=== PATIENT | female | born 1960 | race Caucasian/White ===

== ENCOUNTER 2024-01-01 14:53 | Outpatient (OUT) | payer MEDICARE, SELFPAY ==
--- NOTE | 2024-01-01 15:08 | XR_ITS ---
The [address] [address] Patient Name: CHAS SEN MRN: [id number] date: 1960 Sex: F Assigned Patient Location: [facility] Current Patient Location: Accession/Order Number: [id number] Exam Date: 01/01/2024 15:20 Report Date: 01/02/2024 07:46 At the request of: FRANCISCO PARKS Procedure: XR lumbar spine 2-3V EXAMINATION: XR lumbar spine 2-3V HISTORY: subacute right lumbar radiculopathy M54.16 ; lower right back pain radiating into anterior right leg COMPARISON: No relevant comparison available. FINDINGS: BONES: Moderate degenerative facet arthropathy L5-S1 resulting in bone encroachment on the neural foramen. DISC SPACES: Moderate narrowing L5-S1. PARASPINOUS: Negative. No paraspinous abnormality is seen. OTHER: Endovascular stents within the common iliac arteries. XR/XR lumbar spine 2-3V IMPRESSION: 1. L5-S1 moderate degenerative changes causing foraminal narrowing. Consider MRI for further evaluation. 2. No appreciable acute abnormality. Electronically authenticated by: AWILDA BILLY Date: 01/02/2024 07:46
== END 2024-01-01 14:54 | disposition home or self-care (01) ==
LOC: RAD 14:57
PROVIDERS: PCP Internal Medicine; Visit Provider Internal Medicine
DX: M54.16 Radiculopathy, lumbar region (principal); M51.36 Other intervertebral disc degeneration, lumbar region
CPT/HCPCS: 72100

== ENCOUNTER 2024-10-13 11:56 | Outpatient (OUT) | payer MEDICARE, SELFPAY ==
--- NOTE | 2024-10-13 12:22 | CT_ITS ---
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 TECHNIQUE: Contrast enhanced head and neck CT arteriogram was performed. Scanning performed during the arterial phase from the thoracic inlet to the [place] of [place]. 3D reconstructions were rendered on a separate 3D workstation to evaluate vascular anatomy. Dose reduction techniques were achieved by using automated exposure control and/or adjustment of mA and/or kV according to patient size and/or use of iterative reconstruction technique. Carotid stenosis was measured utilizing NASCET criteria. FINDINGS: VASCULATURE FINDINGS: Arch and Subclavian Arteries: Standard three vessel arch. Subclavian arteries are normal bilaterally. 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 Left common carotid artery is patent. ICAs: Patent bilaterally to the carotid terminus. Trace calcifications of the intracranial ICA segments without high-grade narrowing. MCAs: Normal bilaterally. ACAs: Normal bilaterally. P-Comms: Visualized bilaterally. Vertebral Arteries: Patent to the confluence with the basilar artery. Moderate narrowing of both vertebral artery origins. Basilar Artery: Normal. 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 Aneurysm: None. NECK FINDINGS: No acute soft tissue abnormalities in the neck. Airway is patent. Normal thyroid. Visualized lungs are clear. Multilevel cervicothoracic spondylotic changes. CT/CT angio neck IMPRESSION: 1. 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 This could be chronic. 2. No other large vessel arterial occlusion or high-grade narrowing in the head or neck. 3. Moderate narrowing of both vertebral artery origins. Report was submitted to the clinical operation support team for expedited review by the provider. Electronically authenticated by: AUBREY OLIVIER Date: 10/13/2024 15:14
--- NOTE | 2024-10-13 12:22 | CT_ITS ---
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 TECHNIQUE: Contrast enhanced head and neck CT arteriogram was performed. Scanning performed during the arterial phase from the thoracic inlet to the [place] of [place]. 3D reconstructions were rendered on a separate 3D workstation to evaluate vascular anatomy. Dose reduction techniques were achieved by using automated exposure control and/or adjustment of mA and/or kV according to patient size and/or use of iterative reconstruction technique. Carotid stenosis was measured utilizing NASCET criteria. FINDINGS: VASCULATURE FINDINGS: Arch and Subclavian Arteries: Standard three vessel arch. Subclavian arteries are normal bilaterally. 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 Left common carotid artery is patent. ICAs: Patent bilaterally to the carotid terminus. Trace calcifications of the intracranial ICA segments without high-grade narrowing. MCAs: Normal bilaterally. ACAs: Normal bilaterally. P-Comms: Visualized bilaterally. Vertebral Arteries: Patent to the confluence with the basilar artery. Moderate narrowing of both vertebral artery origins. Basilar Artery: Normal. 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 Aneurysm: None. NECK FINDINGS: No acute soft tissue abnormalities in the neck. Airway is patent. Normal thyroid. Visualized lungs are clear. Multilevel cervicothoracic spondylotic changes. CT/CT angio head IMPRESSION: 1. 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 This could be chronic. 2. No other large vessel arterial occlusion or high-grade narrowing in the head or neck. 3. Moderate narrowing of both vertebral artery origins. Report was submitted to the clinical operation support team for expedited review by the provider. Electronically authenticated by: AUBREY OLIVIER Date: 10/13/2024 15:14
[2024-10-13 12:30] LABS: Estimated GFR (African America >60 (>=60 mL/min/1.73m^2); Estimated GFR (Non-African Ame >60 (>=60 mL/min/1.73m^2)
--- NOTE | 2024-10-13 13:06 | CA_ITS ---
Patient Name: CHAS SEN MR#: [id number] : 1960 Exam Date: 10/13/2024 Ordering Doctor: DR DUSTY BELLA ECHOCARDIOGRAM REPORT PROCEDURE: CA ECHO DOPPLER COMPLETE INDICATIONS: Stroke, eval for PFO COMPARISON: None. DESCRIPTION: COMPLETE ECHOCARDIOGRAM Real-time transthoracic echocardiography with 2D, M-mode, spectral and color flow Doppler performed. QUALITY: Technical quality was adequate. LEFT VENTRICLE: Normal chamber size. Normal left ventricular wall thickness. LV EF: Global left ventricular systolic function is hyperdynamic; visually estimated ejection fraction is 65 to 70%. No wall motion abnormalities. DIASTOLIC: Unable to assess diastolic function. ATRIAL SEPTUM: Intact atrial septum. Suboptimal agitated saline contrast study; this does not reveal an intra-cardiac shunt. LEFT ATRIUM: Normal chamber size. RIGHT ATRIUM: Normal chamber size. RIGHT VENTRICLE: Normal chamber size. Normal right ventricular systolic function. TRICUSPID VALVE: Normal mobility and thickness. No stenosis with no regurgitation. Unable to assess right-sided pressures due to lack of measurable tricuspid regurgitation MITRAL VALVE: Normal mobility and thickness. No evidence of mitral valve stenosis. There is no mitral annular calcification. No mitral regurgitation. AORTIC VALVE: Normal trileaflet appearance. No visible sclerosis. Normal leaflet mobility. No evidence of aortic valve stenosis. No aortic regurgitation. AORTIC ROOT: Normal diameter and appearance. PULMONIC VALVE: Not well visualized. No stenosis. No regurgitation. PERICARDIUM: Anterior free space; trivial effusion versus fat pad IVC: Collapses with inspirations. CONCLUSION: 1. Global left ventricular systolic function is hyperdynamic; visually estimated ejection fraction is 65 to 70% 2. Normal right ventricular size and systolic function 3. No significant valvular abnormalities 4. Anterior free space; trivial effusion versus fat pad 5. A suboptimal agitated saline contrast study was performed; no evidence of intracardiac shunt, consider further investigations (e.g. transesophageal echocardiogram) as clinically appropriate Adult Echocardiography Procedure Report Left Ventricle LVEDD (3.7 - 5.6 cm): 3.15 cm LVESD (2.2 - 4.0 cm): 2.78 cm LVIVS thickness (0.6 - 1.2 cm): 1.12 cm LVPW thickness (0.5 - 1.0 cm): 0.93 cm E - e': 7.73 LVOT Max Gradient: 4.19 mm[Hg] LVOT Area (cm2): 1.02 m/s Peak Velocity (LVOT): 1.02 m/s Mean Velocity (LVOT): 0.65 m/s LVOT Diameter 2.19 cm Left Atrium LA Volume Index (2D A2C): 14.69 ml/m2 Left Atrium Systolic Dimension: 2.69 cm Mitral Valve MV E to A Ratio: 0.69 Mitral Valve A-Wave Peak Velocity: 0.98 m/s Mitral Valve E-Wave Peak Velocity: 0.68 m/s Right Ventricle Aorta AO Root Diam: 2.77 cm Aortic Valve AoV Area (Peak Juliano): 4.04 cm2, 4.04 cm2 AoV Area (VTI): 3.70 cm2, 3.70 cm2 Peak Velocity(Antegrade Flow): 0.96 m/s Peak Gradient(Antegrade Flow): 3.68 mm[Hg] Mean Velocity(Antegrade Flow): 0.67 m/s Mean Gradient(Antegrade Flow): 2.03 mm[Hg] Velocity Time Integral: 19.86 cm Tricuspid Valve Pulmonic Valve Mean Gradient: 1.86 mm[Hg] Mean Velocity: 0.64 m/s Peak Velocity: 0.92 m/s, 0.94 m/s Peak Gradient: 3.53 mm[Hg], 3.37 mm[Hg] Right Atrium Right Atrium Systolic Pressure: 18.66 ml, 18.66 ml Dictated by: Maria De Jesus Calixto M.D. on 10/18/2024 at 14:07 Approved by: Maria De Jesus Calixto M.D. on 10/18/2024 at 14:12
== END 2024-10-13 11:57 | disposition home or self-care (01) ==
LOC: LAB 11:58
PROVIDERS: PCP Internal Medicine; Visit Provider Nurse Practitioner Adult Health
DX: I63.311 Cerebral infarction due to thrombosis of right middle cerebral artery (principal); Z01.812 Encounter for preprocedural laboratory examination
CPT/HCPCS: 36415; 70496; 70498; 82565; 93306; Q9967